=== PATIENT | female | born 1965 | race Caucasian/White ===

== ENCOUNTER 2020-03-28 19:44 | Emergency (ER) | payer SELFPAY ==
[~2020-03-28] VITALS: Ht 175.3 cm; Wt 210.0 kg
[2020-03-28] MEDS ORDERED: LEVEMIR100 UNIT/M SC (20:33)
[2020-03-28] MEDS ORDERED: HUMALOG100 UNIT/M SC (20:33)
[2020-03-28] MEDS ORDERED: DOXYCYCL HYC100 MG PO (20:34)
[2020-03-28 21:50] VITALS: BP 139/81
== END 2020-03-28 22:02 | disposition home or self-care (01) | DRG 603 ==
LOC: ED 19:44
DX: L03.211 Cellulitis of face (principal); E11.9 Type 2 diabetes mellitus without complications